=== PATIENT | male | born 1960 | race Two or more races ===

== ENCOUNTER 2017-01-03 15:42 | Emergency (ER) | payer MEDICAID, OTHER ==
[~2017-01-03] VITALS: Ht 177.8 cm; Wt 85.7 kg
--- NOTE | 2017-01-03 16:28 | Emergency Room Report ---
History of Present Illness General Chief Complaint: Earache Source: Patient Present Illness HPI 56-year-old male presents emergency department complaining of bilateral ear pain and throat pain since this a.m. Patient rates his pain as 9/10 in severity and states his pain is exacerbated upon swallowing he feels a tearing sensation in his throat. Patient also reports paper been stuck inside of his left ear. Pt. reports decreased hearing in the left ear. Patient denies fevers chills nausea vomiting, dizziness, headache, cough or nasal congestion. Patient reports history of depression. Denies CP, Palpitations, LOC, AMS, dizziness, Changes in Vision, Sensation, paresthesias, or a sudden severe headache. Allergies: Coded Allergies: No Known Allergies (Unverified , 01/03/17) Patient History Past Medical History: see triage record Past Surgical History: none Pertinent Family History: none Social History: Reports: drug use - hx of previous homelessness. Reviewed Nursing Documentation: PMH: Agreed, PSxH: Agreed Review of Systems All Other Systems: negative except mentioned in HPI Physical Exam Vital Signs Date Time Temp Pulse Resp B/P Pulse Ox O2 Delivery O2 Flow Rate FiO2 01/03/17 16:10 97.7 79 15 92/57 94 Room Air Sp02 EP Interpretation: reviewed, normal General Appearance: no apparent distress, alert, GCS 15, non-toxic Head: normocephalic, atraumatic Eyes: bilateral eye PERRL, bilateral eye normal inspection ENT: hearing grossly normal, normal pharynx, no angioedema, normal voice, uvula midline, moist mucus membranes, pharyngeal erythema, other - Impacted cerumen in the left ear canal. visual inspection shows cerumen to be very deep in the canal pt. denies use of q-tips. Pharynx is erythematous, no exudates, uvula is midline, no soft tissue swelling noted. Neck: full range of motion, no meningismus, no bony tend, supple/symm/no masses Respiratory: chest non-tender, lungs clear, normal breath sounds, speaking full sentences Cardiovascular #1: regular rate, rhythm, no edema Musculoskeletal: back normal, gait/station normal, normal range of motion, non- tender Neurologic: alert, oriented x3, responsive, motor strength/tone normal, sensory intact, speech normal Psychiatric: judgement/insight normal, memory normal, mood/affect normal, no suicidal/homicidal ideation, depressed affect - pt states he is "waiting to " and that he is depressed due to his family not visiting him in the care home... pt. is currently taking sertraline 50mg. Skin: normal color, no rash, warm/dry, well hydrated Lymphatic: no adenopathy Medical Decision Making PA Attestation Dr. Guerrero is my supervising Physician whom patient management has been discussed with. Diagnostic Impression: Primary Impression: Left ear impacted cerumen Additional Impression: Pharyngitis, acute Qualified Codes: J02.9 - Acute pharyngitis, unspecified ER Course 56-year-old male presents emergency department complaining of bilateral ear pain and throat pain since this a.m. Patient rates his pain as 9/10 in severity and states his pain is exacerbated upon swallowing he feels a tearing sensation in his throat. Patient also reports paper been stuck inside of his left ear. Patient denies fevers chills nausea vomiting, dizziness, headache, cough or nasal congestion. Patient reports history of depression. Ddx considered but are not limited to OM, OE, mastoiditis, TM perforation, FB, cerumen impaction, pharyngitis. Vital signs: are WNL, pt. is afebrile H&PE are most consistent with impacted cerumen of the left ear. ORDERS: none required at this time, the diagnosis is clinical -OTOSCOPY: Impacted cerumen in the left ear canal. visual inspection shows cerumen to be very deep in the canal pt. denies use of q-tips. Pharynx is erythematous, no exudates, uvula is midline, no soft tissue swelling noted. ED INTERVENTIONS: None required at this time. DISCHARGE: At this time pt. is stable for d/c to home. With rx for Docusate. Will provide printed patient care instructions, and any necessary prescriptions. Care plan and follow up instructions have been discussed with the patient prior to discharge. Last Vital Signs Date Time Temp Pulse Resp B/P Pulse Ox O2 Delivery O2 Flow Rate FiO2 01/03/17 16:10 97.7 79 15 92/57 94 Room Air Disposition: HOME, SELF-CARE Condition: Stable Scripts Lidocaine HCl (Lidocaine HCl Viscous) 100 Ml Solution 15 ML PO TID, #120 ML Prov: Heike Cardona.Praful 01/03/17 Carbamide Peroxide (DEBROX) 15 Ml Drops 10 DROP LEFT EAR TWICE A DAY for 4 Days, #15 ML 0 Refills Prov: Heike Cardona 01/03/17 Patient Instructions: Cerumen Impaction, Pharyngitis, [id number] Additional Instructions: Take medications as directed. Follow up with PCP in 3-5 days Return sooner to ED if new symptoms occur, or current symptoms become worse. - Please note that this Emergency Department Report was dictated using [employer] batch mixer technology software, occasionally this can lead to erroneous entry secondary to interpretation by the dictation equipment. Heike Cardona Jan 03, 2017 16:28
[2017-01-03] MEDS ORDERED: DEBROX15 M1 LEFT EAR (16:54)
[2017-01-03] MEDS ORDERED: LIDOCAINE VISCO20 ML PO (16:54)
[2017-01-03 17:03] VITALS: BP 101/63
[2017-01-03 17:04] VITALS: BP 101/63
== END 2017-01-03 17:04 | disposition home or self-care (01) ==
LOC: EMR 16:45
DX: H61.22 Impacted cerumen, left ear (principal); J02.9 Acute pharyngitis, unspecified
CPT/HCPCS: 99284